=== PATIENT | male | born 1970 | race Caucasian/White ===

== ENCOUNTER 2021-08-07 21:15 | Emergency (ER) | payer BC ==
--- NOTE | 2021-08-07 22:58 | ED ---
Dizziness HPI - General Chief Complaint: Dizziness Stated Complaint: High BP Time Seen by Provider: 08/07/21 22:11 Source: patient Mode of arrival: wheelchair Limitations: no limitations - History of Present Illness Initial Comments: This patient is a 50-year-old man presenting here to be evaluated for vertigo symptoms. 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 Patient states that he sat up in bed and it made symptoms worse. Someone at home checked his blood pressure and they found that it was in the neighborhood of 150 over upper 90s. Patient states that the symptoms did not immediately resolve and therefore he came here to be evaluated. The patient states that he feels close to normal now. MD Complaint: other -: minutes(s) Timing: sudden onset, awoke with symptoms Description: "room spinning" History of Same: No History of Trauma: No Severity: moderate Associated Symptoms: denies other symptoms - Related Data Home Medications Medication Instructions Recorded Confirmed No Known Home Medications 08/07/21 08/07/21 Allergies Allergy/AdvReac Type Severity Reaction Status Date / Time No Known Allergies Allergy Verified 08/07/21 22:52 Review of Systems ROS Statement: Those systems with pertinent positive or pertinent negative responses have been documented in the HPI. ROS Other: All systems not noted in ROS Statement are negative. Constitutional: Denies: fever, chills, weakness Eyes: Denies: eye pain, vision change ENT: Denies: ear pain, hearing loss Respiratory: Denies: cough, dyspnea Cardiovascular: Denies: chest pain, palpitations, edema, syncope Gastrointestinal: Denies: abdominal pain, vomiting, diarrhea Genitourinary: Denies: dysuria, hematuria Musculoskeletal: Denies: back pain Skin: Denies: rash Neurological: Reports: headache, vertigo. Denies: weakness, numbness, paresthesias, confusion Past Medical History Past Medical History: No Reported History History of Any Multi-Drug Resistant Organisms: None Reported Past Surgical History: Orthopedic Surgery Past Psychological History: No Psychological Hx Reported Smoking Status: Current every day smoker Past Alcohol Use History: None Reported Past Drug Use History: Marijuana General Exam Limitations: no limitations General appearance: alert, in no apparent distress Head exam: Present: atraumatic, normocephalic Eye exam: Present: normal appearance, PERRL, EOMI. Absent: scleral icterus, conjunctival injection, nystagmus ENT exam: Present: normal oropharynx, mucous membranes moist Neck exam: Present: normal inspection, full ROM. Absent: meningismus Respiratory exam: Present: normal lung sounds bilaterally. Absent: respiratory distress, wheezes, rales, rhonchi, stridor Cardiovascular Exam: Present: regular rate, normal rhythm, normal heart sounds. Absent: systolic murmur, diastolic murmur, rubs, gallop GI/Abdominal exam: Present: soft. Absent: distended, tenderness, guarding, rebound, rigid, mass Extremities exam: Present: normal inspection, normal capillary refill. Absent: pedal edema, calf tenderness Back exam: Present: normal inspection Neurological exam: Present: alert, oriented X3, CN II-XII intact. Absent: motor sensory deficit Skin exam: Present: warm, dry, intact, normal color. Absent: rash Course Vital Signs 08/07/21 08/07/21 08/08/21 21:38 22:31 00:19 Temperature 96.7 F L Pulse Rate 70 67 61 Respiratory 20 18 14 Rate Blood Pressure 130/84 124/82 118/72 O2 Sat by Pulse 96 98 99 Oximetry EKG Findings - EKG Results: EKG: interpreted by KARON LANE, sinus rhythm (Rate 63 bpm), normal axis, normal QRS, normal ST/T Medical Decision Making - Lab Data Result diagrams: 08/07/21 22:36 08/07/21 22:36 Lab Results 08/07/21 08/07/21 08/07/21 Range/Units 22:36 22:36 22:36 WBC 9.2 (3.8-10.6) k/uL RBC 4.73 (4.30-5.90) m/uL Hgb 14.7 (13.0-17.5) gm/dL Hct 44.6 (39.0-53.0) % MCV 94.3 (80.0-100.0) fL MCH 31.0 (25.0-35.0) pg MCHC 32.9 (31.0-37.0) g/dL RDW 12.7 (11.5-15.5) % Plt Count 259 (150-450) k/uL MPV 9.0 Neutrophils % 76 % Lymphocytes % 15 % Monocytes % 5 % Eosinophils % 1 % Basophils % 1 % Neutrophils # 7.0 (1.3-7.7) k/uL Lymphocytes # 1.4 (1.0-4.8) k/uL Monocytes # 0.5 (0-1.0) k/uL Eosinophils # 0.1 (0-0.7) k/uL Basophils # 0.1 (0-0.2) k/uL Sodium 138 (137-145) mmol/L Potassium 3.4 L (3.5-5.1) mmol/L Chloride 103 (98-107) mmol/L Carbon Dioxide 26 (22-30) mmol/L Anion Gap 9 mmol/L BUN 14 (9-20) mg/dL Creatinine 0.83 (0.66-1.25) mg/dL Est GFR (CKD-EPI)AfAm >90 (>60 ml/min/1.73 sqM) Est GFR (CKD-EPI)NonAf >90 (>60 ml/min/1.73 sqM) Glucose 138 H (74-99) mg/dL Calcium 9.3 (8.4-10.2) mg/dL Magnesium 1.8 (1.6-2.3) mg/dL Total Bilirubin 0.9 (0.2-1.3) mg/dL AST 24 (17-59) U/L ALT 15 (4-49) U/L Alkaline Phosphatase 67 (38-126) U/L Troponin I <0.012 (0.000-0.034) ng/mL Total Protein 6.7 (6.3-8.2) g/dL Albumin 4.0 (3.5-5.0) g/dL Disposition Clinical Impression: Vertigo Disposition: HOME SELF-CARE Condition: Good Instructions (If sedation given, give patient instructions): Vertigo (ED) Is patient prescribed a controlled substance at d/c from ED?: No Referrals: None,Stated [Primary Care Provider] - 1-2 days
[2021-08-07 23:22] LABS: Basophils # (A) 0.1 k/uL (0-0.2); Basophils % (A) 1 %; Eosinophils # (A) 0.1 k/uL (0-0.7); Eosinophils % (A) 1 %; HCT 44.6 % (39.0-53.0); HGB 14.7 gm/dL (13.0-17.5); Lymphocytes # (A) 1.4 k/uL (1.0-4.8); Lymphocytes % (A) 15 %; MCHC 32.9 g/dL (31.0-37.0); MCV 94.3 fL (80.0-100.0); Monocytes # (A) 0.5 k/uL (0-1.0); Monocytes % (A) 5 %; Neutrophils % (A) 76 %; Platelet Count 259 k/uL (150-450); RBC 4.73 m/uL (4.30-5.90); RDW 12.7 % (11.5-15.5); WBC 9.2 k/uL (3.8-10.6)
[2021-08-07 23:40] LABS: ALT 15 U/L (4-49); AST 24 U/L (17-59); African American GFR (CKD) >90 (>60 ml/min/1.73 sqM); Alkaline Phosphatase 67 U/L (38-126); Anion Gap 9 mmol/L; Blood Urea Nitrogen 14 mg/dL (9-20); Calcium 9.3 mg/dL (8.4-10.2); Carbon Dioxide 26 mmol/L (22-30); Chloride 103 mmol/L (98-107); Glucose 138 mg/dL (74-99); Magnesium 1.8 mg/dL (1.6-2.3); Non-African American GFR(CKD) >90 (>60 ml/min/1.73 sqM); Potassium 3.4 mmol/L (3.5-5.1); Sodium 138 mmol/L (137-145); Total Bilirubin 0.9 mg/dL (0.2-1.3); Total Protein 6.7 g/dL (6.3-8.2)
[2021-08-08 01:27] VITALS: BP 122/85; PULSE 56; RESP 16; TEMP 97.7
== END 2021-08-08 01:25 | disposition home or self-care (01) ==
LOC: EC 21:15
DX: R42 Dizziness and giddiness (principal); F17.200 Nicotine dependence, unspecified, uncomplicated; F12.90 Cannabis use, unspecified, uncomplicated
CPT/HCPCS: 36415; 80053; 83735; 84484; 85025; 93005; 99284

== ENCOUNTER 2021-08-27 02:58 | Emergency (ER) | payer BC ==
[2021-08-27 03:02] VITALS: TEMP 98.1
[2021-08-27] MEDS ORDERED: diazePAM 5 MG TAB PO STA (05:05)
[2021-08-27] MEDS ORDERED: HYDROmorphone 1 MG/ML 1 ML SYRINGE IM STA (05:05)
--- NOTE | 2021-08-27 05:07 | ED ---
Neck Injury/Pain HPI - General Chief Complaint: Neck Pain/Injury Stated Complaint: Neck pain Time Seen by Provider: 08/27/21 03:27 Source: RN notes reviewed, old records reviewed Mode of arrival: ambulatory Limitations: no limitations - History of Present Illness Initial Comments: This is a 51-year-old male DF for evaluation patient presents today for e valuation of back pain. Neck pain. Upper back pain. Worse with movement. No specific trauma noted. No neurological complaints noted. No numbness and tingling in the fingers. Mild nausea no vomiting. Patient has no significant medical history is no other complaints MD Complaint: neck pain, neck injury -: hour(s) Place: home Radiation: right lateral Severity: moderate Severity scale (1-10): 3 Quality: sharp Consistency: constant Improves With: none Worsens With: none Associated Symptoms: none Treatments Prior to Arrival: none - Related Data Home Medications Medication Instructions Recorded Confirmed No Known Home Medications 08/07/21 08/07/21 Allergies Allergy/AdvReac Type Severity Reaction Status Date / Time No Known Allergies Allergy Verified 08/27/21 03:02 Review of Systems ROS Statement: Those systems with pertinent positive or pertinent negative responses have been documented in the HPI. ROS Other: All systems not noted in ROS Statement are negative. Past Medical History Past Medical History: No Reported History History of Any Multi-Drug Resistant Organisms: None Reported Past Surgical History: Orthopedic Surgery Past Psychological History: No Psychological Hx Reported Smoking Status: Current every day smoker Past Alcohol Use History: None Reported Past Drug Use History: Marijuana General Exam Limitations: no limitations General appearance: alert, in no apparent distress Head exam: Present: atraumatic, normocephalic, normal inspection Eye exam: Present: normal appearance, PERRL, EOMI. Absent: scleral icterus, conjunctival injection, periorbital swelling ENT exam: Present: normal exam, mucous membranes moist Neck exam: Present: normal inspection. Absent: tenderness, meningismus, lymphadenopathy Respiratory exam: Present: normal lung sounds bilaterally. Absent: respiratory distress, wheezes, rales, rhonchi, stridor Cardiovascular Exam: Present: normal rhythm, tachycardia, normal heart sounds. Absent: systolic murmur, diastolic murmur, rubs, gallop, clicks GI/Abdominal exam: Present: soft, normal bowel sounds. Absent: distended, tenderness, guarding, rebound, rigid Extremities exam: Present: normal inspection, full ROM, normal capillary refill. Absent: tenderness, pedal edema, joint swelling, calf tenderness Back exam: Present: normal inspection Neurological exam: Present: alert, oriented X3, CN II-XII intact Psychiatric exam: Present: normal affect, normal mood Skin exam: Present: warm, dry, intact, normal color. Absent: rash Course Vital Signs 08/27/21 08/27/21 03:00 06:26 Temperature 98.1 F 98.1 F Pulse Rate 107 H 99 Respiratory 20 18 Rate Blood Pressure 138/101 149/99 O2 Sat by Pulse 100 99 Oximetry - Reevaluation(s) Reevaluation #1: 08/27/21 Medical record is reviewed Patient symptoms are improved here in the emergency department Patient informed results and questions answered Medical Decision Making - Medical Decision Making 51 male to the ER for evaluation of neck pain. Torticollis type neck pain and muscular neck pain symptoms improved here in the ER. Patient improved and can be discharged home - Radiology Data Radiology results: report reviewed (CT C-spine is negative for acute disease), image reviewed Disposition Clinical Impression: Strain of neck muscle, Acute torticollis Disposition: HOME SELF-CARE Condition: Good Instructions (If sedation given, give patient instructions): Cervical Strain (ED), Cervical Sprain (ED) Is patient prescribed a controlled substance at d/c from ED?: No Referrals: None,Stated [Primary Care Provider] - 1-2 days
--- NOTE | 2021-08-27 05:56 | CT ---
EXAMINATION TYPE: CT cervical spine wo con DATE OF EXAM: 08/27/2021 COMPARISON: NONE HISTORY: neck pain x a couple days. no known injury. woke up with a sore neck and it has gotten wor se over the last few days CT DLP: 251.1 mGycm. Automated Exposure Control for Dose Reduction was Utilized. TECHNIQUE: CT scan of the cervical spine is obtained without contrast, axial images are obtained, sa gittal and coronal reformatted images are also reviewed. FINDINGS: Cervical spine is visualized in its entirety from C1 through upper thoracic levels, demonst rates straightened alignment without evidence of acute fracture or dislocation. Prevertebral soft ti ssue appears within normal limits. The C1-C2 articulation is within normal limits on the coronal inna ges. Vertebral body heights are maintained. Moderate disc space narrowing and spurring C5-C6 and C6-C 7 levels. Mild disc space narrowing and mild to moderate anterior spurring C4-C5 level. Calcified sli ghtly thickened anterior longitudinal ligament effaces anterior thecal sac seen upper to mid cervical spine seen best sagittal image 51 for reference. Axial images at C2-C3 level shows small central disc protrusion mildly facing anterior thecal sac. Axial images C3-C4 level shows similar small disc herniation mildly effacing anterior thecal sac on a xial image 57, patent bilateral neural foramina. Axial images at C4-C5 level shows a left paracentral spur disc complex mildly effacing anterior theca l sac along with uncovertebral facet degenerative changes causing mild left greater than right bilate ral neural foraminal narrowing. Axial images at C5-C6 level show left-sided spur disc complex mildly effaces the anterior thecal sac with mild left-sided neural foraminal narrowing. Axial images at C6-C7 level show posterior spur disc complex effacing the anterior thecal sac with mi ld left greater than right bilateral neural foraminal narrowing. Axial images at C7-T1 level appear within normal limits. Lung apices show emphysematous change without pneumothorax. Thyroid gland appears within normal limit s. Mild calcified plaque bilateral carotid bulb level is present. Nasal septum is deviated to right o f midline. IMPRESSION: Straightening of cervical spine with multilevel degenerative changes as detailed above. No acute findings are evident.
[2021-08-27] MEDS ORDERED: ACET/COD 300 MG/30 MG STARTER PACK 6 TAB BTL PO STA (05:58)
[2021-08-27] MEDS ORDERED: IBUPROFEN 600 MG STARTER PACK 4 TAB BTL PO STA (05:58)
[2021-08-27 06:28] VITALS: BP 149/99; PULSE 99; RESP 18
== END 2021-08-27 06:27 | disposition home or self-care (01) ==
LOC: EC 02:58
DX: S16.1XXA Strain of muscle, fascia and tendon at neck level, initial encounter (principal); M43.6 Torticollis; F17.200 Nicotine dependence, unspecified, uncomplicated; F12.90 Cannabis use, unspecified, uncomplicated; X58.XXXA Exposure to other specified factors, initial encounter
CPT/HCPCS: 72125; 99283; 96372; J1170

== ENCOUNTER 2022-01-01 07:42 | Emergency (ER) | payer BC ==
[2022-01-01 07:51] VITALS: BP 185/104; PULSE 87; RESP 18; TEMP 98.4
--- NOTE | 2022-01-01 08:05 | ED ---
General Adult HPI - General Chief complaint: Extremity Injury, Upper Stated complaint: shoulder pain Time Seen by Provider: 01/01/22 07:54 Source: patient, family, RN notes reviewed Mode of arrival: ambulatory Limitations: no limitations - History of Present Illness Initial comments: Patient is a pleasant 51-year-old male presenting to the emergency Department with left shoulder pain. Patient does have history of similar injury years ago. Patient states 2 days ago he was lifting a 200 pound ladder and felt a snap in his left shoulder. Patient has had significant discomfort since that time. Discomfort is greatly increased with movement. No hand weakness. No color change. No other area of injury or concern. Patient states majority of the d iscomfort is the left trapezius region where he points. - Related Data Previous Rx's Medication Instructions Recorded Cyclobenzaprine [Flexeril] 10 mg PO TID PRN #12 tablet 01/01/22 Ibuprofen [Motrin] 600 mg PO Q6HR PRN #20 tab 01/01/22 Allergies Allergy/AdvReac Type Severity Reaction Status Date / Time No Known Allergies Allergy Verified 01/01/22 07:51 Review of Systems ROS Statement: Those systems with pertinent positive or pertinent negative responses have been documented in the HPI. ROS Other: All systems not noted in ROS Statement are negative. Constitutional: Denies: fever Eyes: Denies: eye pain ENT: Denies: ear pain Respiratory: Denies: cough Cardiovascular: Denies: chest pain Endocrine: Denies: fatigue Gastrointestinal: Denies: abdominal pain Genitourinary: Denies: dysuria Musculoskeletal: Reports: as per HPI. Denies: back pain Past Medical History Past Medical History: No Reported History History of Any Multi-Drug Resistant Organisms: None Reported Past Surgical History: Orthopedic Surgery Past Psychological History: No Psychological Hx Reported Smoking Status: Current every day smoker Past Alcohol Use History: None Reported Past Drug Use History: Marijuana General Exam Limitations: no limitations General appearance: alert, in no apparent distress Head exam: Present: normocephalic Eye exam: Present: normal appearance Neck exam: Present: normal inspection. Absent: tenderness Respiratory exam: Present: normal lung sounds bilaterally Cardiovascular Exam: Present: regular rate, normal rhythm Expanded Peripheral pulses: 2+: Radial (L) GI/Abdominal exam: Present: soft. Absent: tenderness Extremities exam: Present: tenderness (Tenderness left trapezius between the neck and the shoulder. There is also tenderness of the left shoulder as well. Range of motion limited secondary to patient discomfort. Distally the extremity is neurovascular intact.) Neurological exam: Present: alert Psychiatric exam: Present: normal affect, normal mood Skin exam: Present: normal color Course Vital Signs 01/01/22 07:46 Temperature 98.4 F Pulse Rate 87 Respiratory 18 Rate Blood Pressure 185/104 O2 Sat by Pulse 99 Oximetry Medical Decision Making - Medical Decision Making Patient reevaluated. Patient and family updated. - Radiology Data Radiology results: image reviewed (X-ray shows some arthritis. No acute fracture) Disposition Clinical Impression: Shoulder injury Disposition: HOME SELF-CARE Condition: Stable Instructions (If sedation given, give patient instructions): Shoulder Sprain (ED), Rotator Cuff Injury (ED) Additional Instructions: Please follow-up with primary care physician in the next couple days for recheck. Prescription sent to pharmacy. Consider physical therapy. Please also follow-up with orthopedics, number provided. Prescriptions: Cyclobenzaprine [Flexeril] 10 mg PO TID PRN #12 tablet PRN Reason: Pain Ibuprofen [Motrin] 600 mg PO Q6HR PRN #20 tab PRN Reason: Pain Is patient prescribed a controlled substance at d/c from ED?: No Referrals: Esau Lynn MD [Primary Care Provider] - 1-2 days Jyoti Moran DO [Doctor of Osteopathic Medicine] - 1-2 days Time of Disposition: 08:45
[2022-01-01] MEDS ORDERED: HYDROmorphone 1 MG/ML 1 ML SYRINGE IM STA (08:20)
--- NOTE | 2022-01-01 08:28 | XR ---
EXAMINATION TYPE: XR shoulder complete 3 views LT DATE OF EXAM: 01/01/2022 Comparison: None Clinical History: 51-year-old male pain Findings: AC joint intact. Subacromial space is preserved. There is joint space narrowing with subchondral bony irregularity and prominent spurring along the inferior aspect of the glenohumeral joint. No acute fr acture, subluxation, or dislocation. Impression: Underlying moderate glenohumeral joint OA especially along the inferior aspect of the joint. No acute osseous abnormality seen.
== END 2022-01-01 09:24 | disposition home or self-care (01) ==
LOC: EC 07:42
DX: S49.92XA Unspecified injury of left shoulder and upper arm, initial encounter (principal); F17.200 Nicotine dependence, unspecified, uncomplicated; X50.0XXA Overexertion from strenuous movement or load, initial encounter
CPT/HCPCS: 73030; 99283; 96372; J1170

== ENCOUNTER 2023-05-13 12:02 | Emergency (ER) | payer BC, OTHER ==
--- NOTE | 2023-05-13 12:18 | ED ---
General Adult HPI <Trang Thompson - Last Filed: 05/13/23 12:16> - General Source: patient, RN notes reviewed Mode of arrival: ambulatory Limitations: no limitations <Yanique Guallpa - Last Filed: 05/13/23 15:59> - General Chief complaint: Extremity Problem,Nontraumatic Stated complaint: Left arm pain Time Seen by Provider: 05/13/23 12:16 - History of Present Illness Initial comments: The patient is a 52-year-old male who is left-handed presents emergency room with complaints of severe atraumatic left shoulder/clavicle pain that started yesterday. The pain is worse with movement however is still severe at rest. Severe pain with any type of palpation. No rash no erythema nor warmth. 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 (Trang Thompson) This is a 52-year-old male who presents to the emergency department for left shoulder/clavicle pain. States that he has had soreness over the last 1-2 days, however when he woke up this morning the pain became severe. States that he is having difficulty moving the arm as a result of the pain. He does note very repetitive use of the arms at his job, however he denies experiencing pain to this extent in the past. He took ibuprofen with no relief in symptoms. (Yanique Guallpa) - Related Data Home Medications Medication Instructions Recorded Confirmed atenoloL [Tenormin] 50 mg PO DAILY 05/13/23 05/13/23 Previous Rx's Medication Instructions Recorded methocarbamoL [Robaxin-750] 1,500 mg PO TID PRN #30 tab 05/13/23 predniSONE 50 mg PO DAILY 5 Days #5 tab 05/13/23 Allergies Allergy/AdvReac Type Severity Reaction Status Date / Time No Known Allergies Allergy Verified 05/13/23 14:46 Review of Systems ROS Other: All systems not noted in ROS Statement are negative. <Trang Thompson - Last Filed: 05/13/23 12:16> ROS Other: All systems not noted in ROS Statement are negative. <Yaniuqe Guallpa - Last Filed: 05/13/23 15:59> ROS Statement: Those systems with pertinent positive or pertinent negative responses have been documented in the HPI. Past Medical History Past Medical History: No Reported History History of Any Multi-Drug Resistant Organisms: None Reported Past Surgical History: Orthopedic Surgery Past Psychological History: No Psychological Hx Reported Smoking Status: Current every day smoker Past Alcohol Use History: None Reported Past Drug Use History: Marijuana <Herlinda Thompsonn - Last Filed: 05/13/23 12:16> General Exam <Herlinda Thompsonn - Last Filed: 05/13/23 12:16> Limitations: no limitations General appearance: alert, in distress Head exam: Present: atraumatic, normocephalic, normal inspection Respiratory exam: Present: normal lung sounds bilaterally. Absent: respiratory distress, wheezes, rales, rhonchi, stridor Cardiovascular Exam: Present: regular rate, normal rhythm, normal heart sounds. Absent: systolic murmur, diastolic murmur, rubs, gallop, clicks Extremities exam: Present: other (Tenderness to palpation over the left clavicle and left AC joint. Limited range of motion secondary to pain. No deformities, erythema, or warmth. 2+ radial pulses.) Neurological exam: Present: alert, oriented X3, CN II-XII intact Psychiatric exam: Present: normal affect, normal mood Skin exam: Present: warm, dry, intact, normal color. Absent: rash <Yanique Guallpa - Last Filed: 05/13/23 15:59> - General Exam Comments Initial Comments: Visual Physical Exam Vital signs reviewed General: Well-appearing, nontoxic, no acute distress. Head: Normocephalic, atraumatic Eyes: PERRLA, EOMI ENT: Airway patent Chest: Nonlabored breathing Skin: No visual rash, normal skin tone Neuro: Alert and oriented 3 Musculoskeletal: Severe pain with palpation over the left anterior shoulder and clavicle area without any rash erythema or warmth or signs of a septic joint. Limited range of motion due to severe pain (Herlinda Thompsonn) Course Vital Signs 05/13/23 05/13/23 12:14 14:45 Temperature 97.7 F 98.4 F Pulse Rate 76 72 Respiratory 18 18 Rate Blood Pressure 133/79 126/84 O2 Sat by Pulse 98 99 Oximetry Medical Decision Making - Radiology Data Radiology results: report reviewed, image reviewed <Yanique Guallpa - Last Filed: 05/13/23 15:59> - Medical Decision Making This is a 52-year-old male who presents to the emergency department for left shoulder/clavicle pain. Was pt. sent in by a medical professional or institution? @ -No Did you speak to anyone other than the patient for history? @ -No Did you review nursing and triage notes? @ -Yes, and I agree, it is accurate with regards to the patient's symptoms. Were old charts reviewed? @ -No Differential Diagnosis? @ -Differential Musculoskeletal: Muscular strain, contusion, ligament sprain, fracture, arthritis, septic arthritis, bursitis, cellulitis, muscle spasm, nerve compression, DVT, arterial occlusion, herpes zoster, electrolyte abnormality, tumor.... This is not meant to be in all inclusive list EKG interpreted by me (3pts min.)? @ -Not obtained X-rays interpreted by me (1pt min.)? @ -X-ray of the left shoulder and clavicle obtained. My interpretation identifies no acute fractures. CT interpreted by me (1pt min.)? @ -Not obtained U/S interpreted by me (1pt. min.)? @ -Not obtained What testing was considered but not performed? (CT, X-rays, U/S, labs)? Why? @ -None What meds were considered but not given? Why? @ -None Did you discuss the management of the patient with other professionals? @ -No Did you reconcile home meds? @ -No Was smoking cessation discussed for >3mins.? @ -No Was critical care preformed (if so, how long)? @ -No Were there social determinants of health that impacted care today? How? (Homelessness, low income, unemployed, alcoholism, drug addiction, transportation, low edu. Level, literacy, decrease access to med. care, fpc, rehab)? @ -No Was there de-escalation of care discussed even if they declined? (Discuss DNR or withdrawal of care, Hospice)? @ -No What co-morbidities impacted this encounter? (DM, HTN, Smoking, COPD, CAD, Cancer, CVA, Hep., AIDS, mental health diagnosis, sleep apnea, morbid obesity)? @ -None Was patient admitted / discharged? @ -Discharged. X-ray of the left shoulder and clavicle obtained revealing no acute process. He was noted to have moderate to severe osteoarthritis. Findings reviewed with the patient. His symptoms were well controlled in the emergency department. Prescription for 5 day course of prednisone and Robaxin provided with dosing instructions reviewed. He was also given information for orthopedic follow-up regarding the severe osteoarthritis to discuss long-term management. Patient otherwise discharged in stable condition. Undiagnosed new problem with uncertain prognosis? @ -None Drug Therapy requiring intensive monitoring for toxicity (Heparin, Nitro, Insulin, Cardizem)? @ -None Were any procedures done? @ -None Diagnosis/symptom? @ -Left shoulder pain Acute, or Chronic, or Acute on Chronic? @ -Acute Uncomplicated (without systemic symptoms) or Complicated (systemic symptoms)? @ -Uncomplicated Side effects of treatment? @ -None Exacerbation, Progression, or Severe Exacerbation] @ -Not applicable Poses a threat to life or bodily function? @ -The pain may impact his ability to function. Return precautions reviewed in depth, the patient is instructed to return to the emergency department with any new, worsening, or concerning symptoms. Patient verbalized understanding. This case was discussed in detail with the attending ED physician, Dr. Sethi. Presentation, findings, and treatment plan discussed in detail as well. (Yanique Guallpa) Disposition <Trang Thompson - Last Filed: 05/13/23 12:16> Is patient prescribed a controlled substance at d/c from ED?: No <Yanique Guallpa - Last Filed: 05/13/23 15:59> Clinical Impression: Left shoulder pain, Osteoarthritis Disposition: HOME SELF-CARE Instructions (If sedation given, give patient instructions): Osteoarthritis (ED), Arthralgia (ED), Shoulder Pain (ED) Additional Instructions: Return to the emergency department with any new, worsening, or concerning symptoms. Take the prednisone daily for 5 days. You can supplement this with Tylenol for additional relief. You can take the Robaxin as 1-2 tablets up to 4 times daily. Be aware that this may make you drowsy. Follow up with your primary care provider in 1-2 days. Contact orthopedics as listed below for a follow up appointment. Prescriptions: predniSONE 50 mg PO DAILY 5 Days #5 tab methocarbamoL [Robaxin-750] 1,500 mg PO TID PRN #30 tab PRN Reason: Pain Referrals: None,Stated [Primary Care Provider] - 1-2 days Matt Richmond MD [Medical Doctor] - 1-2 days
[2023-05-13 12:35] VITALS: RESP 18
[2023-05-13] MEDS ORDERED: KETOROLAC 15 MG/ML 1 ML VIAL IM STA (13:37)
[2023-05-13] MEDS ORDERED: HYDROcodone/APAP 5-325MG 1 EACH TAB PO STA (13:37)
[2023-05-13] MEDS ORDERED: ORPHENADRINE 30 MG/ML 2 ML VIAL IM STA (13:37)
[2023-05-13] MEDS ORDERED: LIDOCAINE 4% PATCH TOPICAL ONE (13:37)
--- NOTE | 2023-05-13 13:51 | XR ---
EXAMINATION TYPE: XR shoulder complete LT, XR clavicle LT DATE OF EXAM: 05/13/2023 1:22 PM CLINICAL INDICATION:Male, 52 years old with history of severe atraumatic pain; [facility] COMPARISON: 01/01/2022 TECHNIQUE: XR shoulder complete LT, XR clavicle LT; shoulder was examined in AP, internally rotated and scapular Y projections. Clavicle was evaluated in frontal and angled frontal view. FINDINGS: No evidence of acute osseous pathology, joint dislocation, or soft tissue swelling. The remaining po rtions of the visualized chest are unremarkable. Mild degeneration changes with osteophyte reformatio n of the humerus and glenoid. There is joint space narrowing. IMPRESSION: 1. No acute osseous pathology. 2. Moderate to severe left shoulder osteoporosis.
[2023-05-13] MEDS ORDERED: traMADol 50 MG STARTER PACK 3 TAB BTL PO STA (14:30)
[2023-05-13] MEDS ORDERED: IBUPROFEN 600 MG STARTER PACK 4 TAB BTL PO STA (14:30)
[2023-05-13 15:11] VITALS: BP 126/84; PULSE 72; TEMP 98.4
== END 2023-05-13 15:48 | disposition home or self-care (01) ==
LOC: EC 12:02
DX: M25.512 Pain in left shoulder (principal); M19.90 Unspecified osteoarthritis, unspecified site; F12.90 Cannabis use, unspecified, uncomplicated; F17.200 Nicotine dependence, unspecified, uncomplicated
CPT/HCPCS: 73030; 73000; 99283; 96372 ×2; J2360; J1885

== ENCOUNTER 2023-06-25 10:10 | Emergency (ER) | payer SELFPAY ==
[2023-06-25] MEDS ORDERED: ORPHENADRINE 30 MG/ML 2 ML VIAL IM STA (10:48)
--- NOTE | 2023-06-25 10:50 | ED ---
Back Pain HPI - General Chief Complaint: Back Pain/Injury Stated Complaint: Back Pain Time Seen by Provider: 06/25/23 10:48 Source: patient, RN notes reviewed Limitations: no limitations - History of Present Illness Initial Comments: Patient is a 52-year-old male presented to the ER with a chief complaint of back pain. Patient states going on for about a week. Patient is endorsing radiating pain down his right leg with all movements. Patient denies any known trauma or injuries. He does states sometimes due to the pain he feels like his right leg is about to give out. Patient has been taking [id number] ibuprofen with no relief. Patient denies any bowel or bladder incontinence, saddle paresthesias, IV drug use, fevers. - Related Data Home Medications Medication Instructions Recorded Confirmed atenoloL [Tenormin] 50 mg PO DAILY 05/13/23 05/13/23 Previous Rx's Medication Instructions Recorded methocarbamoL [Robaxin-750] 1,500 mg PO TID PRN #30 tab 05/13/23 predniSONE 50 mg PO DAILY 5 Days #5 tab 05/13/23 predniSONE 50 mg PO DAILY #5 tab 06/25/23 Allergies Allergy/AdvReac Type Severity Reaction Status Date / Time No Known Allergies Allergy Verified 06/25/23 10:32 Review of Systems ROS Statement: Those systems with pertinent positive or pertinent negative responses have been documented in the HPI. ROS Other: All systems not noted in ROS Statement are negative. Past Medical History Past Medical History: Hypertension History of Any Multi-Drug Resistant Organisms: None Reported Past Surgical History: Orthopedic Surgery Additional Past Surgical History / Comment(s): left knee, amputated thumb, Past Psychological History: No Psychological Hx Reported Smoking Status: Current every day smoker Past Alcohol Use History: None Reported Past Drug Use History: Marijuana General Exam Limitations: no limitations General appearance: alert, in no apparent distress Head exam: Present: atraumatic, normocephalic, normal inspection Neck exam: Present: normal inspection. Absent: tenderness, meningismus, lymphadenopathy Respiratory exam: Present: normal lung sounds bilaterally. Absent: respiratory distress, wheezes, rales, rhonchi, stridor Cardiovascular Exam: Present: regular rate, normal rhythm, normal heart sounds. Absent: systolic murmur, diastolic murmur, rubs, gallop, clicks Back exam: Present: tenderness (Thoracic spine), other (positive right straight leg raise.) Neurological exam: Present: alert, oriented X3, CN II-XII intact Psychiatric exam: Present: normal affect, normal mood Skin exam: Present: warm, dry, intact, normal color. Absent: rash Course Vital Signs 06/25/23 10:30 Temperature 97.6 F Pulse Rate 84 Respiratory 20 Rate Blood Pressure 125/85 O2 Sat by Pulse 99 Oximetry Medical Decision Making - Medical Decision Making Was pt. sent in by a medical professional or institution (, PA, ADVERTISING CONSULTANT, urgent care, hospital, or longterm...) When possible be specific @ -No Did you speak to anyone other than the patient for history (EMS, parent, family, police, friend...)? What history was obtained from this source @ -No Did you review nursing and triage notes (agree or disagree)? Why? @ -I reviewed and agree with nursing and triage notes Were old charts reviewed (outside hosp., previous admission, EMS record, old EKG, old radiological studies, urgent care reports/EKG's, longterm records)? Report findings @ -No old charts were reviewed Differential Diagnosis (chest pain, altered mental status, abdominal pain women, abdominal pain men, vaginal bleeding, weakness, fever, dyspnea, syncope, headache, dizziness, GI bleed, back pain, seizure, CVA, palpatations, mental health, musculoskeletal)? @ -Differential Back Pain: Strain, zoster, cauda equina syndrome, epidural abscess, vertebral osteomyelitis, discitis, fracture, subluxation, disc herniation, DJD, spinal stenosis, dissection, AAA, pancreatitis, peptic ulcer disease, pyelonephritis, kidney stone, this is not meant to be an all-inclusive list. EKG interpreted by me (3pts min.). @ -None X-rays interpreted by me (1pt min.). @ -None done CT interpreted by me (1pt min.). @ -CT thoracic lumbar spine shows degenerative disc disease. There is also spinal stenosis at L3-L4 and L4-L5. U/S interpreted by me (1pt. min.). @ -None done What testing was considered but not performed or refused? (CT, X-rays, U/S, labs)? Why? @ -None What meds were considered but not given or refused? Why? @ -None Did you discuss the management of the patient with other professionals (professionals i.e. , PA, ADVERTISING CONSULTANT, lab, RT, psych nurse, social media assistant, web press operator helper offset, teacher, electronic intelligence officer, high risk case manager)? Give summary @ -No Was smoking cessation discussed for >3mins.? @ -I discussed smoking cessation for greater than 3 minutes. The risk of smoking were discussed with the patient including but not limited to risks of cancer, stroke, coronary artery disease and COPD. Also discussed with patient were multiple methods of quitting smoking. Lastly we discussed the financial cost of smoking. Was critical care preformed (if so, how long)? @ -No Were there social determinants of health that impacted care today? How? (Homelessness, low income, unemployed, alcoholism, drug addiction, transportation, low edu. Level, literacy, decrease access to med. care, custodial, rehab)? @ -No Was there de-escalation of care discussed even if they declined (Discuss DNR or withdrawal of care, Hospice)? DNR status @ -No What co-morbidities impacted this encounter? (DM, HTN, Smoking, COPD, CAD, Cancer, CVA, ARF, Chemo, Hep., AIDS, mental health diagnosis, sleep apnea, morbid obesity)? @ -Smoking Was patient admitted / discharged? Hospital course, mention meds given and route, prescriptions, significant lab abnormalities, going to OR and other pertinent info. @ -Discharge. Patient is a 52-year-old male presented to ER with chief complaint of back pain with radiation down right leg. Vitals stable. No red flag back pain symptoms indicative of cauda equina syndrome. No signs of acute distress. CT showed degenerative disc disease. There is also spinal stenosis at L3-L4 and L4-L5. Patient received IM norflex with mild relief of symptoms. I discussed imaging findings with patient. I discussed smoking cessation for greater than 3 minutes. The risk of smoking were discussed with the patient including but not limited to risks of cancer, stroke, coronary artery disease and COPD. Also discussed with patient were multiple methods of quitting smoking. Lastly we discussed the financial cost of smoking. I advised him to follow-up with orthopedic spine specialists. Prescribed prednisone. Return parameters were discussed. Patient be discharged in stable condition with follow-up to PCP/orthopedics. Patient expressed understanding and agreement with care plan. Undiagnosed new problem with uncertain prognosis? @ -No Drug Therapy requiring intensive monitoring for toxicity (Heparin, Nitro, Insulin, Cardizem)? @ -No Were any procedures done? @ -No Diagnosis/symptom? @ -Spinal stenosis Acute, or Chronic, or Acute on Chronic? @ -Chronic Uncomplicated (without systemic symptoms) or Complicated (systemic symptoms)? @ -Uncomplicated Side effects of treatment? @ -No Exacerbation, Progression, or Severe Exacerbation? @ -No Poses a threat to life or bodily function? How? (Chest pain, [place], [place], pneumonia, PE, COPD, DKA, ARF, appy, cholecystitis, CVA, Diverticulitis, Homicidal, Suicidal, threat to staff... and all critical care pts) @ -No - Radiology Data Radiology results: report reviewed, image reviewed Disposition Clinical Impression: Spinal stenosis Disposition: HOME SELF-CARE Condition: Stable Instructions (If sedation given, give patient instructions): Lumbar Spinal Stenosis (ED) Additional Instructions: Follow-up with orthopedic tax specialist. Return to ER for any new or worsening symptoms. Prescriptions: predniSONE 50 mg PO DAILY #5 tab Is patient prescribed a controlled substance at d/c from ED?: No Referrals: None,Stated [Primary Care Provider] - 1-2 days Franco Carrasquillo DO [Doctor of Osteopathic Medicine] - 1-2 days Time of Disposition: 12:15
--- NOTE | 2023-06-25 11:43 | CT ---
EXAMINATION TYPE: CT thor lumbar spine wo con DATE OF EXAM: 06/25/2023 COMPARISON: None HISTORY: pt woke up with extreme back pain no known injury. CT DLP: 640 mGycm Automated exposure control for dose reduction was used. FINDINGS: The thoracic and lumbar vertebral segments are normal in height and alignment and there is no fractur e or subluxation. The paraspinal soft tissues unremarkable. There is very mild degenerative disc disease in the mid lower thoracic spine where there is mild ante rior spondylosis. There is mild disc space narrowing at the L3-4 level indicating mild degenerative d isease. Although the study is limited for disc herniation no large disc herniations are seen. Mild spinal stenosis is suspected at the L3-4 and L4-5 levels secondary to circumferential disc bulge and mild thickening of ligamentum flavum. There is moderate facet arthropathy at the L4-5 level. IMPRESSION: 1. No evidence of acute trauma. 2. Mild degenerative changes as described above. 3. Possible mild spinal stenosis at the L3-4 and L4-5 levels. 4. This technique is limited for spinal stenosis and disc herniation. If clinically indicated MRI of the lumbar spine would be useful for further evaluation.
[2023-06-25 12:41] VITALS: BP 120/84; PULSE 80; RESP 18; TEMP 97.9
== END 2023-06-25 12:35 | disposition home or self-care (01) ==
LOC: EC 10:10
DX: M48.04 Spinal stenosis, thoracic region (principal); I10 Essential (primary) hypertension; F17.200 Nicotine dependence, unspecified, uncomplicated; F12.90 Cannabis use, unspecified, uncomplicated; Z79.899 Other long term (current) drug therapy
CPT/HCPCS: 72128; 72131; 99283; 96372; 99406; J2360

== ENCOUNTER 2024-11-01 03:18 | Emergency (ER) | payer SELFPAY ==
[2024-11-01 03:24] VITALS: RESP 18
--- NOTE | 2024-11-01 04:25 | ED ---
Extremity Problem HPI - General Chief complaint: Extremity Problem,Nontraumatic Stated complaint: right arm pain Time Seen by Provider: 11/01/24 03:38 Source: patient Mode of arrival: ambulatory Limitations: no limitations - History of Present Illness Initial comments: This patient is 54-year-old man presenting to have evaluation of right forearm and hand pain. The patient states that this has been coming on over some time and has been getting worse. He notes that movement of the hand and work tends to make the pain more severe. He did not have any acute trauma that brought things on. Patient denies weakness or numbness. MD Complaint: extremity pain -: days(s) Location: right, upper extremity History of Same: Yes Quality: burning, aching Consistency: constant Improves with: rest Worsens with: other (Movement) Associated Symptoms: denies other symptoms - Related Data Home Medications Medication Instructions Recorded Confirmed atenoloL [Tenormin] 50 mg PO DAILY 05/13/23 05/13/23 Previous Rx's Medication Instructions Recorded methocarbamoL [Robaxin-750] 1,500 mg PO TID PRN #30 tab 05/13/23 predniSONE 50 mg PO DAILY 5 Days #5 tab 05/13/23 predniSONE 50 mg PO DAILY #5 tab 06/25/23 predniSONE 60 mg PO DAILY #30 tab 11/01/24 Allergies Allergy/AdvReac Type Severity Reaction Status Date / Time No Known Allergies Allergy Verified 11/01/24 03:24 Review of Systems ROS Statement: Those systems with pertinent positive or pertinent negative responses have been documented in the HPI. ROS Other: All systems not noted in ROS Statement are negative. Constitutional: Denies: fever, weakness Respiratory: Denies: cough, dyspnea Cardiovascular: Denies: chest pain Gastrointestinal: Denies: abdominal pain, nausea, vomiting Musculoskeletal: Reports: as per HPI, myalgia Skin: Denies: rash Neurological: Reports: paresthesias. Denies: headache, weakness, numbness Past Medical History Past Medical History: Hypertension History of Any Multi-Drug Resistant Organisms: None Reported Past Surgical History: Orthopedic Surgery Additional Past Surgical History / Comment(s): left knee, amputated thumb, Past Psychological History: No Psychological Hx Reported Smoking Status: Current every day smoker Past Alcohol Use History: None Reported Past Drug Use History: Marijuana General Exam Limitations: no limitations General appearance: alert, in no apparent distress Head exam: Present: atraumatic, normocephalic Eye exam: Present: normal appearance. Absent: scleral icterus, conjunctival injection Neck exam: Present: normal inspection, full ROM. Absent: tenderness Respiratory exam: Present: normal lung sounds bilaterally. Absent: respiratory distress Cardiovascular Exam: Present: regular rate, normal rhythm, normal heart sounds Right Shoulder Exam: Present: normal inspection, full ROM. Absent: tenderness, swelling Upper Arm exam: Present: normal inspection, full ROM. Absent: tenderness, swelling Elbow exam: Present: normal inspection, full ROM. Absent: tenderness, swelling Forearm Wrist exam: Present: normal inspection, full ROM, tenderness. Absent: swelling, abrasion, ecchymosis, deformity, erythema Hand Wrist exam: Present: normal inspection, full ROM. Absent: tenderness, swelling Neuro motor exam: Present: wrist extension intact, thumb opposition intact Neurological exam: Present: alert, CN II-XII intact. Absent: motor sensory deficit Skin exam: Present: warm, dry, intact, normal color. Absent: rash Course Vital Signs 11/01/24 11/01/24 03:22 04:56 Temperature 97.5 F L 97.7 F Pulse Rate 68 72 Respiratory 18 18 Rate Blood Pressure 121/84 115/79 O2 Sat by Pulse 98 98 Oximetry Medical Decision Making - Medical Decision Making Was pt. sent in by a medical professional or institution ([facility], TEACHERS' AIDE, urgent care, hospital, or group home...) When possible be specific @ -[No] Did you speak to anyone other than the patient for history (EMS, parent, family, police, friend...)? What history was obtained from this source @ -[No] Did you review nursing and triage notes (agree or disagree)? Why? @ -[I reviewed and agree with nursing and triage notes] Were old charts reviewed (outside hosp., previous admission, EMS record, old EKG, old radiological studies, urgent care reports/EKG's, group home records)? Report findings @ -[No old charts were reviewed] Differential Diagnosis (chest pain, altered mental status, abdominal pain women, abdominal pain men, vaginal bleeding, weakness, fever, dyspnea, syncope, headache, dizziness, GI bleed, back pain, seizure, CVA, palpatations, mental health, musculoskeletal)? @ -Differential Musculoskeletal Muscular strain, contusion, ligament sprain, fracture, arthritis, septic arthritis, bursitis, cellulitis, muscle spasm, nerve compression, DVT, arterial occlusion, herpes zoster, electrolyte abnormality, tumor.... This is not meant to be in all inclusive list EKG interpreted by me (3pts min.). @ -[As above] X-rays interpreted by me (1pt min.). @ -[None done] CT interpreted by me (1pt min.). @ -[None done] U/S interpreted by me (1pt. min.). @ -[None done] What testing was considered but not performed or refused? (CT, X-rays, U/S, labs)? Why? @ -[None] What meds were considered but not given or refused? Why? @ -[None] Did you discuss the management of the patient with other professionals (professionals i.e. , PA, TEACHERS' AIDE, lab, RT, psych nurse, social media developer, mold worker, teacher, navy senior officer, case repairer)? Give summary @ -[No] Was smoking cessation discussed for >3mins.? @ -[No] Was critical care preformed (if so, how long)? @ -[No] Were there social determinants of health that impacted care today? How? (Homelessness, low income, unemployed, alcoholism, drug addiction, transportation, low edu. Level, literacy, decrease access to med. care, alf, rehab)? @ -[No] Was there de-escalation of care discussed even if they declined (Discuss DNR or withdrawal of care, Hospice)? DNR status @ -[No] What co-morbidities impacted this encounter? (DM, HTN, Smoking, COPD, CAD, Cancer, CVA, ARF, Chemo, Hep., AIDS, mental health diagnosis, sleep apnea, morbid obesity)? @ -[None] Was patient admitted / discharged? Hospital course, mention meds given and route, prescriptions, significant lab abnormalities, going to OR and other pertinent info. @ -[Patient is a 54-year-old man presenting with history and physical consistent with ulnar nerve impingement. Discussed appropriate further care, appropriate follow-up including possible need to have nerve conduction studies or orthopedic surgery consultation Undiagnosed new problem with uncertain prognosis? @ -[No] Drug Therapy requiring intensive monitoring for toxicity (Heparin, Nitro, Insulin, Cardizem)? @ -[No] Were any procedures done? @ -[No] Diagnosis/symptom? @ -Ulnar nerve impingement Acute, or Chronic, or Acute on Chronic? @ -[Acute Uncomplicated (without systemic symptoms) or Complicated (systemic symptoms)? @ -[Uncomplicated Side effects of treatment? @ -[No] Exacerbation, Progression, or Severe Exacerbation? @ -[No] Poses a threat to life or bodily function? How? (Chest pain, [place], [place], pneumonia, PE, COPD, DKA, ARF, appy, cholecystitis, CVA, Diverticulitis, Homicidal, Suicidal, threat to staff... and all critical care pts) @ -[No] All treatments are based on ideal body weight as in ED triage Disposition Clinical Impression: Ulnar nerve impingement Disposition: HOME SELF-CARE Condition: Good Instructions (If sedation given, give patient instructions): Peripheral Neuropathy (ED) Prescriptions: predniSONE 60 mg PO DAILY #30 tab Is patient prescribed a controlled substance at d/c from ED?: No Referrals: None,Stated [Primary Care Provider] - 1-2 days Emily Izquierdo MD [REFERRING] - 1-2 days Franco Carrasquillo DO [Doctor of Osteopathic Medicine] - 1-2 days
[2024-11-01] MEDS: predniSONE 20 MG TAB PO STA (04:34)
[2024-11-01] MEDS: GABAPENTIN 100 MG CAP PO STA (04:34)
[2024-11-01 04:58] VITALS: BP 115/79; PULSE 72; TEMP 97.7
== END 2024-11-01 04:56 | disposition home or self-care (01) ==
LOC: EC 03:18
DX: G56.21 Lesion of ulnar nerve, right upper limb (principal); F17.200 Nicotine dependence, unspecified, uncomplicated
CPT/HCPCS: 99283; J7512